=== PATIENT | male | born 1990 | race African-American/Black ===

== ENCOUNTER 2017-03-24 09:44 | Emergency (ER) | payer SELFPAY ==
[2017-03-24 09:55] VITALS: BP 139/71; PULSE 104; TEMP 98.3; BMI 27.3
[2017-03-24] MEDS ORDERED: predniSONE 20 MG TABLET (UD) ONE (11:41)
--- NOTE | 2017-03-24 11:47 | PDOC ---
History of Present Illness - General Chief Complaint: Rash Stated Complaint: RASH Time Seen by Provider: 03/24/17 11:10 History Source: Patient Exam Limitations: No Limitations - History of Present Illness Initial Comments: 03/24/17 11:47 MY CHIEF COMPLAINT: WORSENED EZCEMA HISTORY OF PRESENT ILLNESS: PT. IS A 26 Y/O MALE WITH H/O ECZEMA HERE TODAY C/O WORSENING RASH OVER THE LAST MONTH. PT. HAS BEEN OUT OF MEDICATIONS USED BETAMETHASONE OINTMENT WITH GOOD RESULTS IN THE PAST. 03/24/17 12:03 Timing/Duration: getting worse (FOR ONE MONTH ) Severity: severe (GENERALIZED WORSE AT SKIN FOLDS ) Associated Symptoms: reports: rash (WITH ERYTHEMA, SCALINESS GENERALIZED WORSE AT SKIN FOLDS ) Past History - Past Medical History Allergies/Adverse Reactions: Allergies Allergy/AdvReac Type Severity Reaction Status Date / Time No Known Allergies Allergy Verified 03/24/17 09:51 Home Medications: Ambulatory Orders Betamethasone Dipropionate [Diprosone 0.05% Ointment -] 1 applic TP BID #30 tube 03/24/17 Hydroxyzine Pamoate [Vistaril -] 25 mg PO Q6H PRN #30 capsule 03/24/17 Methylprednisolone [Medrol Dose Nathaniel] 4 mg PO ASDIR #21 tablet 03/24/17 COPD: No Other medical history: ECZEMA - Suicide/Smoking/Psychosocial Hx Smoking History: Current every day smoker Number of Cigarettes Smoked Daily: 2 Information on smoking cessation initiated: No Hx Alcohol Use: Yes (SOCIAL) Drug/Substance Use Hx: No Substance Use Type: None Review of Systems - Review of Systems Able to Perform ROS?: Yes Constitutional: No: Symptoms Reported HEENTM: No: Symptoms Reported Respiratory: No: Symptoms reported Cardiac (ROS): No: Symptoms Reported ABD/GI: No: Symptoms Reported : No: Symptoms Reported Musculoskeletal: No: Symptoms Reported Integumentary: Yes: Rash (GENERALIZED ERTYHEMATOUS SCALY WORSE AT SKIN FOLD ) Neurological: No: Symptoms reported *Physical Exam - Vital Signs Last Vital Signs Temp Pulse Resp BP Pulse Ox 98.3 F 104 H 20 139/71 100 03/24/17 09:48 03/24/17 09:48 03/24/17 09:48 03/24/17 09:48 03/24/17 09:48 - Physical Exam General Appearance: Yes: Appropriately Dressed HEENT: positive: Normal ENT Inspection Neck: negative: Lymphadenopathy (R), Lymphadenopathy (L) Respiratory/Chest: positive: Lungs Clear, Normal Breath Sounds. negative: Chest Tender Cardiovascular: positive: Regular Rhythm, Regular Rate, S1, S2 Integumentary: positive: Erythema (GENERALIZED WITH SLIGHT SCALINESS WORSE AT SKIN FOLDS ), Rash Neurologic: positive: Alert, Normal Response, Responsive. negative: Numbness, Sensory Deficit Medical Decision Making - Medical Decision Making 03/24/17 11:57 PT. IS A 26 Y/O MALE WITH H/O ECZEMA HERE TODAY C/O WORSENING RASH OVER THE LAST MONTH. PT. HAS BEEN OUT OF MEDICATIONS USED BETAMETHASONE OINTMENT WITH GOOD RESULTS IN THE PAST. PLAn: BETAMETHASONE 0.05% OINTMENT BID VISTARIL 25MG Q 6 HR PRN ITCHINESS PREDNISONE 40 MG PO NOW THAN MEDROL DOSE PACK START ON 03/25/17 FOLLOW UP WITH DERM 03/24/17 12:05 *DC/Admit/Observation/Transfer Diagnosis at time of Disposition: Acute eczema - Discharge Dispostion Disposition: HOME Condition at time of disposition: Stable - Prescriptions Prescriptions: Betamethasone Dipropionate [Diprosone 0.05% Ointment -] 1 applic TP BID #30 tube Hydroxyzine Pamoate [Vistaril -] 25 mg PO Q6H PRN #30 capsule PRN Reason: For Itching Methylprednisolone [Medrol Dose Nathaniel] 4 mg PO ASDIR #21 tablet - Referrals Referrals: Michael Tolentino [Primary Care Provider] - Garcia Rossi [Non Staff, Medical] - - Patient Instructions Additional Instructions: FOLLOW UP DERMATOLOGY SOON POSSIBLE RETURN TO EMERGENCY ROOM IF SYMPTOMS WORSEN AVOID DRYING OFF FULLY AFTER BATHING YOU CAn also use cetaphil lotion as directed PATIENT VOICED UNDERSTANDING OF DISCHARGE INSTRUCTIONS AND ALL QUESTIONS WERE ANSWERED - Post Discharge Activity
[2017-03-24] MEDS ORDERED: predniSONE 20 MG TABLET (UD) PO ONE (11:48)
== END 2017-03-24 12:14 | disposition home or self-care (01) ==
LOC: JERFT 09:44 → JER 09:44 → JERFT 12:14
DX: L30.8 Other specified dermatitis (principal); F17.210 Nicotine dependence, cigarettes, uncomplicated
CPT/HCPCS: 99281-25

== ENCOUNTER 2017-04-06 08:21 | Emergency (ER) | payer SELFPAY ==
[2017-04-06 08:29] VITALS: BP 130/70; PULSE 101; TEMP 98; BMI 28.5
--- NOTE | 2017-04-06 09:02 | PDOC ---
History of Present Illness - General Chief Complaint: Rash Stated Complaint: RASH Time Seen by Provider: 04/06/17 08:41 History Source: Patient Exam Limitations: No Limitations - History of Present Illness Initial Comments: 04/06/17 15:12 My chief complaint: Worsening rash generalized History of present illness: Patient is a 26-year-old male with history of eczema here today reporting that he ran out of his steroid ointment and rash has worsened over the last couple weeks. Patient has an appointment with a hearing screener but not until April. Timing/Duration: getting worse Severity: moderate Associated Symptoms: reports: rash (generalized) Past History - Past Medical History Allergies/Adverse Reactions: Allergies Allergy/AdvReac Type Severity Reaction Status Date / Time No Known Allergies Allergy Verified 04/06/17 08:26 Home Medications: Ambulatory Orders Ammonium Lactate Cream [Lac-Hydrin 12% *Cream*] 1 applic TP BID #1 tube Betamethasone Dipr 0.05% Oint [Diprolene] 50 gm NR BID #1 tube MDD 2 04/06/17 Cetirizine HCl [Zyrtec -] 10 mg PO DAILY #30 tablet 04/06/17 Hydroxyzine HCl [Atarax -] 25 mg PO Q6H PRN #30 tablet 04/06/17 COPD: No Other medical history: ECZEMA - Suicide/Smoking/Psychosocial Hx Smoking History: Current every day smoker Number of Cigarettes Smoked Daily: 2 Information on smoking cessation initiated: Yes 'Breaking Loose' booklet given: 04/06/17 Hx Alcohol Use: Yes (SOCIAL) Drug/Substance Use Hx: No Substance Use Type: None Review of Systems - Review of Systems Able to Perform ROS?: Yes Constitutional: No: Symptoms Reported HEENTM: No: Symptoms Reported Respiratory: No: Symptoms reported Cardiac (ROS): No: Symptoms Reported ABD/GI: No: Symptoms Reported : No: Symptoms Reported Musculoskeletal: No: Symptoms Reported Integumentary: Yes: Rash (generalized with scaliness) *Physical Exam - Vital Signs Last Vital Signs Temp Pulse Resp BP Pulse Ox 98.0 F 101 H 20 130/70 98 04/06/17 08:24 04/06/17 08:24 04/06/17 08:24 04/06/17 08:24 04/06/17 08:24 - Physical Exam General Appearance: Yes: Appropriately Dressed Respiratory/Chest: positive: Lungs Clear, Normal Breath Sounds. negative: Chest Tender, Respiratory Distress Cardiovascular: positive: Regular Rhythm, Regular Rate, S1, S2 Integumentary: positive: Rash (with scaliness worse at skin folds sparing face, generalized ) Neurologic: positive: Alert, Normal Response Medical Decision Making - Medical Decision Making 04/06/17 15:13 Patient is a 26-year-old male with history of eczema here today reporting that he ran out of his steroid ointment and rash has worsened over the last couple weeks. Patient has an appointment with a hearing screener but not until April. Ezcema PLAN: BetaMethasone 0.05% ointment bid lacydrin lotion apply bid zyrtec 10 mg daily atarax 25mg q 6 hrs prn itchiness follow up with hearing screener 04/06/17 15:14 *DC/Admit/Observation/Transfer Diagnosis at time of Disposition: Eczema Qualifiers: Eczema type: unspecified Qualified Code(s): L30.9 - Dermatitis, unspecified - Discharge Dispostion Disposition: HOME Condition at time of disposition: Stable - Prescriptions Prescriptions: Ammonium Lactate Cream [Lac-Hydrin 12% *Cream*] 1 applic TP BID #1 tube Betamethasone Dipr 0.05% Oint [Diprolene] 50 gm NR BID #1 tube MDD 2 Cetirizine HCl [Zyrtec -] 10 mg PO DAILY #30 tablet Hydroxyzine HCl [Atarax -] 25 mg PO Q6H PRN #30 tablet PRN Reason: For Itching - Referrals - Patient Instructions Additional Instructions: Followup with hearing screener as previously scheduled Avoid drying skin next well after showering or bathing allowo remain moist and then applied ointments Return to emergency room if symptoms worsen or new symptoms develop Patient voiced understanding of discharge instructions and all questions were answered - Post Discharge Activity
== END 2017-04-06 09:07 | disposition home or self-care (01) ==
LOC: JERFT 08:21 → JER 08:21 → JERFT 09:07
DX: L30.9 Dermatitis, unspecified (principal); F17.210 Nicotine dependence, cigarettes, uncomplicated
CPT/HCPCS: 99281-25